=== PATIENT | female | born 1990 | race Caucasian/White ===

== ENCOUNTER 2018-03-23 18:28 | Emergency (ER) | payer OTHER, SELFPAY ==
[~2018-03-23] VITALS: Ht 162.6 cm; Wt 86.2 kg
[2018-03-23 18:41] VITALS: BP 118/75
--- NOTE | 2018-03-23 18:47 | ER.PDOC ---
General Chief Complaint: Requesting Medical Care Stated Complaint: LESS THAN 20 WEEKS Time seen by MD: 18:33 Source: patient Exam Limitations: no limitations History of Present Illness Initial Comments LMP was January 25, started yesterday with mild spotting, but, today it has been more notorious and went through her pants, denies cramps or pain Vaginal Bleed: abnormal bleeding, spotting : 2 Para: 1 Test: clinic Care: none Past Medical History LMP (females 10-50): Review of Systems Constitutional: no symptoms reported EENTM: no symptoms reported Respiratory: no symptoms reported Cardiovascular: no symptoms reported Gastrointestinal: no symptoms reported Genitourinary: see HPI Musculoskeletal: no symptoms reported Skin: no symptoms reported Psychiatric/Neurological: no symptoms reported Endocrine: no symptoms reported Hematologic/Lymphatic: no symptoms reported Physical Exam General Appearance: No Apparent Distress, WD/WN EENT: eyes nml inspection, nml ENT inspection, pharynx nml Neck: nml inspection, non-tender Cardiovascular/Respiratory: Regular Rate, Rhythm, No M/R/G, Normal Peripheral Pulses, No JVD, Normal Breath Sounds, No Respiratory Distress Abdomen: Normal Bowel Sounds, Non Tender, Soft, No Organomegaly, No Pulsatile Mass Back: nml inspection Extremities: Normal Range of Motion, Non-Tender, Normal Inspection, No Pedal Edema, No Calf Tenderness, Normal Capillary Refill 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 NML as Tested, No Motor/Sensory Deficits, Alert, Normal Mood/Affect, Oriented x 3 Skin: Normal Color, Warm/Dry Lymphatic: No Adenopathy Results/Orders Results/Orders Laboratory Tests Test 03/23/18 18:53 03/23/18 19:04 Urine Collection Type UNKNOWN Urine Color RED (YELLOW) Urine Appearance CLOUDY (CLEAR) Urine Bilirubin NEGATIVE MG/DL (NEGATIVE) Urine Ketones NEGATIVE (NEGATIVE) Urine Specific [place] 1.025 (1.005-1.035) Urine pH 5 (5.0-6.0) Urine Protein 100 mg/dL (NEGATIVE) Urine Urobilinogen NORMAL (NEGATIVE) Urine Nitrate NEGATIVE (NEGATIVE) Urine Leukocyte Esterase 500/uL 2+ (NEGATIVE) Urine Blood 250 4+ (NEGATIVE) Urine RBC TNTC RBC/HPF (NONE SEEN) Urine WBC 5-10 WBC/HPF (0-2) Urine Squamous Epithelial Cells FEW #/HPF (FEW) Urine Renal Epithelial Cells RARE #/HPF (NONE SEEN) Urine Calcium Oxalate Crystals RARE (NONE SEEN) Urine Bacteria FEW (NONE SEEN) Urine Other CLUE CELLS RARE #/HPF Urine Glucose NORMAL (NEGATIVE) White Blood Count 12.2 10^3/uL (4.5-11.0) Red Blood Count 4.21 10^6/uL (4.00-5.20) Hemoglobin 13.2 g/dL (12.0-15.0) Hematocrit 39.4 % (36.0-46.0) Mean Corpuscular Volume 93.6 fL (78-100) Mean Corpuscular Hemoglobin 31.4 pg (26-34) Mean Corpuscular Hemoglobin Concent 33.5 g/dL (33-37) Red Cell Distribution Width 12.8 % (11.5-14.5) Platelet Count 378 10^3/uL (150-400) Mean Platelet Volume 10.0 fL (7.8-11.0) Neutrophils (%) (Auto) 68.4 % (41.0-85.0) Lymphocytes (%) (Auto) 23.8 % (24.0-44.0) Monocytes (%) (Auto) 6.6 % (5.0-12.0) Neutrophils # (Auto) 8.4 10^3/uL (1.8-7.7) Lymphocytes # (Auto) 2.9 10^3/uL (1.0-4.8) Monocytes # (Auto) 0.8 10^3/uL (0.3-0.8) Absolute Immature Granulocyte (auto 0.03 10^3 u/L (0-2) Eosinophils % 0.8 % (0.0-5.0) Basophils % 0.2 % (0.0-0.2) Basophils # 0.0 10^3/uL (0.0-0.1) Eosinophil Count 0.1 10^3/uL (0.0-0.2) Sodium Level 140 mmol/L (132-145) Potassium Level 3.8 mmol/L (3.6-5.2) Chloride Level 100.0 mmol/L (96-109) Carbon Dioxide Level 27.3 mmol/L (20.0-32) Anion Gap 16.5 Blood Urea Nitrogen 12 mg/dL (7-18) Creatinine 0.96 mg/dL (0.59-1.40) Estimated GFR () 85.7 (>/=60) BUN/Creatinine Ratio 12.0 Glucose Level 102 mg/dL (70-110) Calcium Level 9.5 mg/dL (8.4-10.5) Total Bilirubin 0.3 mg/dL (0.2-1.0) Aspartate Amino Transf (AST/SGOT) 12 U/L (0-35) Alanine Aminotransferase (ALT/SGPT) 24 U/L (12-78) Alkaline Phosphatase 70 U/L (50-136) Total Protein 8.4 g/dL (6.4-8.2) Albumin 4.0 g/dL (3.4-5.0) Globulin 4.4 Human Chorionic Gonadotropin, Quant 8883 mIU/mL Percent Immature Gran (Cell Imm) 0.20 % (0.00-0.50) Course Vitals & review Data Vital Sign - Last 24 Hours 03/23/18 03/23/18 03/23/18 18:41 18:41 18:41 Temp 98.4 98.4 98.4 98.4 98.4 98.4 Pulse 93 93 93 Resp B/P (MAP) 118/75 (89) Pulse Ox 99 99 O2 Delivery Room Air Room Air Laboratory Tests Test 03/23/18 18:53 03/23/18 19:04 Urine Collection Type UNKNOWN Urine Color RED Urine Appearance CLOUDY Urine Bilirubin NEGATIVE MG/DL Urine Ketones NEGATIVE Urine Specific [place] 1.025 Urine pH 5 Urine Protein 100 mg/dL Urine Urobilinogen NORMAL Urine Nitrate NEGATIVE Urine Leukocyte Esterase 500/uL 2+ Urine Blood 250 4+ Urine RBC TNTC RBC/HPF Urine WBC 5-10 WBC/HPF Urine Squamous Epithelial Cells FEW #/HPF Urine Renal Epithelial Cells RARE #/HPF Urine Calcium Oxalate Crystals RARE Urine Bacteria FEW Urine Other CLUE CELLS RARE #/HPF Urine Glucose NORMAL White Blood Count 12.2 10^3/uL Red Blood Count 4.21 10^6/uL Hemoglobin 13.2 g/dL Hematocrit 39.4 % Mean Corpuscular Volume 93.6 fL Mean Corpuscular Hemoglobin 31.4 pg Mean Corpuscular Hemoglobin Concent 33.5 g/dL Red Cell Distribution Width 12.8 % Platelet Count 378 10^3/uL Mean Platelet Volume 10.0 fL Neutrophils (%) (Auto) 68.4 % Lymphocytes (%) (Auto) 23.8 % Monocytes (%) (Auto) 6.6 % Neutrophils # (Auto) 8.4 10^3/uL Lymphocytes # (Auto) 2.9 10^3/uL Monocytes # (Auto) 0.8 10^3/uL Absolute Immature Granulocyte (auto 0.03 10^3 u/L Eosinophils % 0.8 % Basophils % 0.2 % Basophils # 0.0 10^3/uL Eosinophil Count 0.1 10^3/uL Sodium Level 140 mmol/L Potassium Level 3.8 mmol/L Chloride Level 100.0 mmol/L Carbon Dioxide Level 27.3 mmol/L Anion Gap 16.5 Blood Urea Nitrogen 12 mg/dL Creatinine 0.96 mg/dL Estimated GFR () 85.7 BUN/Creatinine Ratio 12.0 Glucose Level 102 mg/dL Calcium Level 9.5 mg/dL Total Bilirubin 0.3 mg/dL Aspartate Amino Transf (AST/SGOT) 12 U/L Alanine Aminotransferase (ALT/SGPT) 24 U/L Alkaline Phosphatase 70 U/L Total Protein 8.4 g/dL Albumin 4.0 g/dL Globulin 4.4 Human Chorionic Gonadotropin, Quant 8883 mIU/mL Percent Immature Gran (Cell Imm) 0.20 % Departure Time of Disposition: 20:37 Disposition: 01 HOME, SELF-CARE Impression: Primary Impression: UTI (urinary tract infection) in in first trimester Condition: Stable Patient Instructions: - Urinary Tract Infection Referrals: PCP,UNKNOWN (PCP) PRIMARY CARE PROVIDER Duration or Time Spent with Pa: MARIELA WAITE MD Mar 23, 2018 18:47
--- NOTE | 2018-03-23 18:55 | NUR ---
[facility]O CALLED [facility]/C TO COME OBTAIN SONOGRAM
[2018-03-23 19:00] LABS: BILIRUBIN,URINE NEGATIVE (NEGATIVE); UROBILINOGEN,URINE NORMAL (NEGATIVE)
[2018-03-23 19:01] LABS: APPEARANCE,URINE CLOUDY (CLEAR); UA COLOR RED (YELLOW)
--- NOTE | 2018-03-23 19:33 | NUR ---
SONO PATIENT TO SONO VIA W/C
[2018-03-23 19:41] LABS: BASOPHIL % 0.2 % (0.0-0.2); EOSINOPHIL # 0.1 10^3/uL (0.0-0.2); EOSINOPHIL % 0.8 % (0.0-5.0); HEMOGLOBIN 13.2 g/dL (12.0-15.0); LYMPHOCYTES # 2.9 10^3/uL (1.0-4.8); LYMPHOCYTES % 23.8 % (24.0-44.0); MEAN CELL HGB 31.4 pg (26-34); MEAN CELL HGB CONCENTRATION 33.5 g/dL (33-37); MEAN CORP VOLUME 93.6 fL (78-100); MONOCYTES # 0.8 10^3/uL (0.3-0.8); MONOCYTES % 6.6 % (5.0-12.0); NEUTROPHIL # 8.4 10^3/uL (1.8-7.7); NEUTROPHILS % 68.4 % (41.0-85.0); RED CELL DISTRIBUTION WIDTH 12.8 % (11.5-14.5); WHITE BLOOD CELL 12.2 10^3/uL (4.5-11.0)
[2018-03-23 19:57] LABS: CALCIUM 9.5 mg/dL (8.4-10.5); CARBON DIOXIDE 27.3 mmol/L (20.0-32)
[2018-03-23 20:47] VITALS: BP 118/75
--- NOTE | 2018-03-23 20:48 | DIREP ---
PROCEDURE:US OB 1ST TRI - TV COMPARISON:None. INDICATIONS:Bleeding TECHNIQUE:Transabdominal and endovaginal pelvic ultrasound images were obtained. Endovaginal images were obtained to optimally evaluate the and maternal adnexal structures. FINDINGS: GESTATIONAL SAC:Present and normal appearing. Gestational age based on mean sac diameter 8 weeks 1 day PLACENTA:No subchorionic hemorrhage. AMNIOTIC FLUID:Volume within normal limits. POLE:Not visualized YOLK SAC:Not visualized CARDIAC ACTIVITY:Not detected UTERUS:Normal. OVARIES:Normal in size, shape, and echogenicity. There are no adnexal masses. CUL-DE-SAC:Normal. US CIERRA:11/01/2018 OTHER:Negative. CONCLUSION: First trimester intrauterine however with empty gestational sac in no detectable cardiac activity. Follow-up with serial quantitative beta HCG is recommended. Dictated by: Juanjose Lentz M.D. on 03/23/2018 at 08:44 PM
== END 2018-03-23 20:43 | disposition home or self-care (01) ==
LOC: ER 18:28
DX: O23.41 Unspecified infection of urinary tract in pregnancy, first trimester (principal); Z3A.01 Less than 8 weeks gestation of pregnancy
CPT/HCPCS: 36415; 76801; 76817; 80053; 81000; 84702; 85025; 86900; 87086; 99285

== ENCOUNTER 2020-05-30 18:45 | Emergency (ER) | payer OTHER ==
[~2020-05-30] VITALS: Ht 162.6 cm; Wt 64.9 kg
[2020-05-30 18:59] VITALS: BP 130/76
[2020-05-30] MEDS ORDERED: LIDOCAINE 1% VIAL ONE (19:06)
[2020-05-30] MEDS ORDERED: CLEOCIN ONE (19:07)
[2020-05-30] MEDS ORDERED: ROCEPHIN ONE (19:07)
[2020-05-30] MEDS ORDERED: TORADOL ONE (19:07)
[2020-05-30] MEDS ORDERED: ROCEPHIN IM STA (19:08)
[2020-05-30] MEDS ORDERED: CLEOCIN PO STA (19:08)
[2020-05-30] MEDS ORDERED: TORADOL IM STA (19:08)
--- NOTE | 2020-05-30 19:16 | ER.PDOC ---
General Chief Complaint: Toothache Stated Complaint: MOUTH PAIN Time seen by MD: 19:11 Source: patient Exam Limitations: no limitations History of Present Illness Initial Comments Toothache and right jaw swelling for 2-3 days, no fever or chills. Timing/Duration: gradual Associated Symptoms: toothache, swollen jaw (right lower jaw), jaw pain (R) Severity: moderate Allergies: Coded Allergies: No Known Allergies (Unverified , 05/30/20) Past Medical History Medical History: no pertinent history Surgical History: no surgical history Social History Alcohol Use: none Drug Use: none Constitutional: no symptoms reported Mouth: see HPI Throat: no symptoms reported Respiratory: no symptoms reported Cardiovascular: no symptoms reported Gastrointestinal: no symptoms reported Musculoskeletal: no symptoms reported All Other Systems: Reviewed and Negative Physical Exam General Appearance: alert, no distress Head/Neck: head nml inspection, neck nml inspection, trachea midline, no lymphadenopathy, thyroid nml Mouth: dental tenderness (right lower molar with jaw swelling) Throat: pharynx nml, voice nml, no airway problems Respiratory: no resp. distress, lungs clear CVS: reg. rate & rhythm, heart sounds nml Abdomen: non-tender, no organomegaly Extremities: non-tender, ROM nml Skin Exam: Normal Color, Warm/Dry NEURO/PSYCH: oriented X3, mood/effect nml Results/Orders Results/Orders Vital Signs Date Time Temp Pulse Resp B/P (MAP) Pulse Ox O2 Delivery O2 Flow Rate FiO2 05/30/20 18:59 98.3 103 16 130/76 (94) 97 Room Air 05/30/20 18:59 98.3 103 16 05/30/20 18:59 98.3 103 16 97 ER DEPART Departure Time of Disposition: 19:13 Disposition: 01 HOME, SELF-CARE Impression: Primary Impression: Dental infection Additional Impression: Acute pain Condition: Stable Referrals: PCP,UNKNOWN (PCP) PRIMARY CARE PROVIDER Additional Instructions: Clindamycin Ibuprofen Tramadol F/U with your Dentist in 2-3 days Return to ED if worsening pain or concerns Duration or Time Spent with Pa: 10 min TESSA MAR MD May 30, 2020 19:16
[2020-05-30 19:40] VITALS: BP 129/70
== END 2020-05-30 19:40 | disposition home or self-care (01) ==
LOC: ER 18:45
DX: K04.7 Periapical abscess without sinus (principal)
CPT/HCPCS: 96372 ×2; 99284; J0696; J1885; J2001